=== PATIENT | male | born 1975 | race Asian ===

== ENCOUNTER 2016-08-31 21:22 | Emergency (ER) | payer MEDICAID, OTHER ==
[2016-08-31 21:27] VITALS: TEMP 97.5; O2SAT 96
--- NOTE | 2016-08-31 21:58 | EDPHY ---
H & P Stated Complaint: left lower back pain x3 days while moving. hx of back injury HPI/ROS: HPI CHIEF COMPLAINT: Low back pain HISTORY OF PRESENT ILLNESS: This patient very pleasant 40-year-old male, significant past medical history for lumbar fusion L4 L5-10 years ago, no other daily medical problems does not take any daily medications, presents emergency room with 2-3 days of worsening left paravertebral lumbar back pain. Describes the pain as sharp stabbing radiates down his left posterior leg to his foot. Sciatic type symptoms. He denies midline lumbar back pain, denies saddle anesthesia, denies bowel or bladder incontinence, denies leg weakness. Denies trouble walking. Denies fever, direct trauma to his back. Tells me this pain started 2-3 days ago it was moving boxes and "tweaked his back" currently upon arrival emergency room tells me his pain is 6/10 left-sided lumbar region paravertebral. Past Medical History: No significant medical history Past Surgical History: Lumbar fusion L4-L5 Social History: Denies daily use of drugs alcohol tobacco products, works at [employer] Family History: noncontributory ROS REVIEW OF SYSTEMS: A comprehensive 10 point review of systems is otherwise negative aside from elements mentioned in the history of present illness. Exam Constitutional appears well nontoxic, triage nursing summary reviewed, vital signs reviewed, awake/alert. Eyes normal conjunctivae and sclera, EOMI, PERRLA. HENT normal inspection, atraumatic, moist mucus membranes, no epistaxis, neck supple/ no meningismus, no raccoon eyes. Respiratory clear to auscultation bilaterally, normal breath sounds, no respiratory distress, no wheezing. Cardiovascular rate normal, regular rhythm, no murmur, no edema, distal pulses normal. Gastrointestinal soft, non-tender, no rebound, no guarding, normal bowel sounds, no distension, no pulsatile mass. Genitourinary no CVA tenderness. Musculoskeletal back exam: No midline lumbar back pain does have mild tenderness palpation paravertebral lumbar region, scar to left paravertebral region, full range of motion, no calf swelling, no tenderness of extremities, no meningismus, good pulses, neurovascularly intact. Skin pink, warm, & dry, no rash, skin atraumatic. a neurological exam no evidence of cauda equina syndrome specifically no bowel bladder incontinence, no leg weakness, normal reflexes, good straight leg test. With CLR he does have sharp shooting pain down left leg. +CLR Neurologic awake, alert and oriented x 3, AAOx3, moves all 4 extremities equally, motor intact, sensory intact, CN II-XII intact, normal cerebellar, normal vision, normal speech. Psychiatric normal mood/affect. Heme/Lymph/Immune no lymphadenopathy. Differential Diagnosis: Includes but is not limited to in a particular order nerve root compression, annular tear, degenerative disc disease, malalignment of lumbar spine, compression fracture, hardware malalignment, however fracture Medical Decision Making: Plan for this patient W[place] p. o., Flexeril p. o., ibuprofen p.o., lumbar spine x-ray. Re-evaluation: ED x-ray lumbar spine two-view: image interpreted by myself. However seen L4- L5 good placement. No malalignment. No compression fracture. No obvious signs of cause of patient's pain. 2226: Re-examination at this time. Patient resting comfortably no acute distress. Agrees for discharge planning. Agrees to follow up with Neurosurgery outpatient. Call for an appointment. Prescription given for ibuprofen, [place], Flexeril. No hard signs of acute cauda equina syndrome. Source: Patient - Personal History Current Tetanus/Diphtheria Vaccine: Unsure Current Tetanus Diphtheria and Acellular Pertussis (TDAP): Unsure - Medical/Surgical History Hx Asthma: No Hx Chronic Respiratory Disease: No Hx Diabetes: No Hx Cardiac Disease: No Hx Renal Disease: No Hx Cirrhosis: No Hx Alcoholism: No Hx HIV/AIDS: No Hx Splenectomy or Spleen Trauma: No Other PMH: back surgery spinal fusion 2004 - Social History Smoking Status: Never smoked Constitutional: Initial Vital Signs Temperature (C) 36.4 C 08/31/16 21:24 Heart Rate 100 08/31/16 21:24 Respiratory Rate 18 08/31/16 21:24 Blood Pressure 123/85 H 08/31/16 21:24 O2 Sat (%) 96 08/31/16 21:24 O2 Delivery Mode Room Air Allergies/Adverse Reactions: No Known Allergies Allergy (Verified 08/31/16 21:27) Home Medications: Medication Instructions Recorded Cyclobenzaprine [Flexeril 10 MG 10 mg PO TID PRN #5 tab 08/31/16 (*)] Hydrocodone/APAP 5/325 [[place] 1 - 2 tab PO Q4H PRN #10 tab 08/31/16 5/325] Ibuprofen [Motrin (*)] 800 mg PO Q6-8PRN #7 tab 08/31/16 Medical Decision Making - Data Points Medications Given: Discontinued Medications Hydrocodone Bitart/Acetaminophen ([place] 10/325) 1 tab PO EDNOW ONE Stop: 08/31/16 22:04 Last Admin: 08/31/16 22:21 Dose: 1 tab Cyclobenzaprine HCl (Flexeril) 10 mg PO EDNOW ONE Stop: 08/31/16 22:04 Last Admin: 08/31/16 22:20 Dose: 10 mg Ibuprofen (Motrin) 800 mg PO EDNOW ONE Stop: 08/31/16 22:04 Last Admin: 08/31/16 22:20 Dose: 800 mg Ondansetron HCl (Zofran Odt) 4 mg PO EDNOW ONE Stop: 08/31/16 22:04 Last Admin: 08/31/16 22:20 Dose: 4 mg Departure - Departure Disposition: Home, Routine, Self-Care Clinical Impression: Low back strain Qualifiers: Encounter type: initial encounter Qualified Code(s): S39.012A - Strain of muscle, fascia and tendon of lower back, initial encounter Condition: Good Instructions: Low Back Strain (ED) Additional Instructions: 1. Take ibuprofen for mild pain. 2. ice Your back. 3.Do not do aggressive activity 4. take W[place] if you have severe pain. 5. Please follow up with her primary care doctor or year ortho spine doctor about further evaluation of her back pain if it continues to bother you. You may at 1 point need an MRI of her back. 6. I have also referred you to neurosurgery. Please call their for an appointment. Referrals: NONE *PRIMARY CARE P,. [Primary Care Provider] - As per Instructions Michael Saab MD [Medical Doctor] - As per Instructions Prescriptions: Cyclobenzaprine [Flexeril 10 MG (*)] 10 mg PO TID PRN #5 tab PRN Reason: Spasms Hydrocodone/APAP 5/325 [[place]ak[place] 5/325] 1 - 2 tab PO Q4H PRN #10 tab PRN Reason: Pain, Moderate Ibuprofen [Motrin (*)] 800 mg PO Q6-8PRN #7 tab
[2016-08-31] MEDS ORDERED: IBUPROFEN 200 MG TAB PO ONE (22:03)
[2016-08-31] MEDS ORDERED: ONDANSETRON DISINTEGRATING 4 MG TAB PO ONE (22:03)
[2016-08-31] MEDS ORDERED: CYCLOBENZAPRINE 10 MG TAB PO ONE (22:03)
[2016-08-31] MEDS ORDERED: HYDROCODONE/APAP 10/325 TAB PO ONE (22:03)
[2016-08-31] MEDS ORDERED: HYDROCODONE/APAP 5/325 TAB ONE ×2 (22:12)
[2016-08-31 22:40] VITALS: BP 120/84; PULSE 82; RESP 16
== END 2016-08-31 22:39 | disposition home or self-care (01) ==
DX: S39.012A Strain of muscle, fascia and tendon of lower back, initial encounter (principal); X58.XXXA Exposure to other specified factors, initial encounter

== ENCOUNTER → 2016-11-11 | Outpatient (CLI) | payer MEDICAID | LOC: FIMAGING 18:50 | PROVIDERS: ATTEND Neurological Surgery | DX: Z98.1 Arthrodesis status (principal); M48.06 Spinal stenosis, lumbar region ==

== ENCOUNTER 2017-01-10 23:29 | Emergency (ER) | payer MEDICAID ==
[2017-01-10 23:34] VITALS: RESP 18
[2017-01-10] MEDS ORDERED: ACETAMINOPHEN 325 MG TAB PO ONE (23:45)
[2017-01-10] MEDS ORDERED: NS 1,000 ML IV ONE (23:45)
[2017-01-10] MEDS ORDERED: CYCLOBENZAPRINE 10 MG TAB PO ONE (23:45)
--- NOTE | 2017-01-10 23:48 | EDPHY ---
H & P Smoking Status: Never smoked Time Seen by Provider: 01/10/17 23:47 HPI/ROS: HPI: This is a 41 year old male who presents with Chief Complaint: Location: Fever Quality: Fever Duration: 3-4 days Signs and Symptoms: Positive sore throat, no nausea, no vomiting, no diarrhea, no abdominal pain, no cough, + fatigue, no neck stiffness, no headache, no urinary symptoms, positive chills Timing: sudden daily Severity: Moderate Context: Patient presents today with 3-4 day history of subjective fevers, chills and fatigue accompanied by sore throat. He reports that he lives with his brother who was diagnosed with strep throat last week. 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 Seen by primary care 2 days ago and tested negative for influenza. Modifying Factors: 600mg Motrin at 2130 Comment: ROS: Eyes: No blurred vision Respiratory: No shortness of breath, no cough Cardiovascular: No chest pain Gastrointestinal: No nausea, no vomiting no diarrhea Genitourinary: No dysuria Extremities: No myalgias Neurologic: No weakness, no numbness Skin: No rashes Hematologic: No bruising, no bleeding MEDICAL/SURGICAL HISTORY: Generally healthy. Lumbar fusion L4-L5. (Afshan Bragg) Social History: Employed. (Afshan Bragg) Physical Exam: CONSTITUTIONAL: ill appearing male, awake and alert, no obvious distress, non- toxic in appearance HEENT: Atraumatic and normocephalic, PERRL, EOMI. Tympanic membranes clear. Oropharynx clear, no exudate and moist pink mucosa. Airway patent. No lymphadenopathy. No meningismus. Cardiovascular: Normal S1/S2, regular rate, regular rhythm, without murmur rub or gallop. PULMONARY/CHEST: Symmetrical and nontender. Clear to auscultation bilaterally Good air movement. No accessory muscle usage. ABDOMEN: Soft, nondistended, nontender, no rebound, no guarding, no peritoneal signs, no masses or organomegaly. No CVAT. EXTREMITIES: 2/2 pulses, no deformities, no clubbing, no cyanosis or edema. NEUROLOGICAL: no focal neuro deficits. GCS 15. SKIN: Warm and dry, no erythema. no rash. Good capillary refill. (Afshan Bragg) Constitutional: Initial Vital Signs Temperature (C) 36.6 C 01/10/17 23:32 Heart Rate 82 01/10/17 23:32 Respiratory Rate 18 01/10/17 23:32 Blood Pressure 159/83 H 01/10/17 23:32 O2 Sat (%) 99 01/10/17 23:32 O2 Delivery Mode Room Air Allergies/Adverse Reactions: No Known Allergies Allergy (Verified 08/31/16 21:27) Home Medications: Medication Instructions Recorded Cyclobenzaprine [Flexeril 10 MG 10 mg PO TID PRN #5 tab 08/31/16 (*)] Hydrocodone/APAP 5/325 [Etlan 1 - 2 tab PO Q4H PRN #10 tab 08/31/16 5/325] Ibuprofen [Motrin (*)] 800 mg PO Q6-8PRN #7 tab 08/31/16 Medical Decision Making ED Course/Re-evaluation: Labs, urinalysis, IV fluids, medications, chest x-ray, strep test No systemic signs. Leukocytosis. Strep is negative CXR my read, no opacity/effusion/pneumothorax Creatinine 1.4 noted; 2 liters NS given and tolerating p.o. End of Shift: Signed out to Dr. Toney at 0100 pending UA results. suspect they will be normal and patient will be discharged home with supportive care. (Afshan Bragg) Differential Diagnosis: Adult fever including but not limited to viral syndromes including influenza, urinary tract infection, pneumonia and sepsis. (Afshan Bragg) Other Provider: PHYSICIAN DOCUMENTATION: The patient was evaluated and managed by the Physician Aut[employer] Specialist. My co- signature indicates that I have reviewed this chart and I agree with the findings and plan of care as documented. I am the secondary supervising physician. I followed up on the patient's UA which was normal and the patient will be discharged home. (Ayleen Toney) - Data Points Laboratory Results: Laboratory Results 01/11/17 00:05 01/11/17 00:05 01/11/17 01/11/17 01/11/17 Unknown 01:00 00:05 WBC RBC Hgb Hct MCV MCH MCHC RDW Plt Count MPV Neut % (Auto) Lymph % (Auto) [place] % (Auto) Eos % (Auto) Baso % (Auto) Nucleat RBC Rel Count Absolute Neuts (auto) Absolute Lymphs (auto) Absolute Monos (auto) Absolute Eos (auto) Absolute Basos (auto) Absolute Nucleated RBC Immature Gran % Immature Gran # ESR Sodium 141 mEq/L mEq/L (134-144) Potassium 3.7 mEq/L mEq/L (3.5-5.2) Chloride 107 mEq/L mEq/L (97-110) Carbon Dioxide 23 mEq/l mEq/l (22-31) Anion Gap 11 mEq/L mEq/L (8-16) BUN 12 mg/dL mg/dL (7-23) Creatinine 1.4 mg/dL H mg/dL (0.7-1.3) Estimated GFR 56 Glucose 73 mg/dL mg/dL (70-100) Calcium 9.4 mg/dL mg/dL (8.5-10.4) Total Bilirubin 0.5 mg/dL mg/dL (0.1-1.4) AST 26 IU/L IU/L (17-59) ALT 33 IU/L IU/L (21-72) Alkaline Phosphatase 58 IU/L IU/L (38-126) Total Protein 7.2 g/dL g/dL (6.3-8.2) Albumin 4.0 g/dL g/dL (3.5-5.0) Urine Color COLORLESS Urine Appearance CLEAR Urine pH 6.0 (5.0-7.5) Ur Specific [place] 1.002 (1.002-1.030) Urine Protein NEGATIVE (NEGATIVE) Urine Ketones NEGATIVE (NEGATIVE) Urine Blood NEGATIVE (NEGATIVE) Urine Nitrate NEGATIVE (NEGATIVE) Urine Bilirubin NEGATIVE (NEGATIVE) Urine Urobilinogen NEGATIVE EU EU (0.2-1.0) Ur Leukocyte Esterase NEGATIVE (NEGATIVE) Urine Glucose NEGATIVE (NEGATIVE) Group A Strep Screen Group A Strep DNA Pending 01/11/17 01/10/17 00:05 23:45 WBC 8.03 10^3/uL 10^3/uL (3.80-9.50) RBC 4.60 10^6/uL 10^6/uL (4.40-6.38) Hgb 13.8 g/dL g/dL (13.7-17.5) Hct 41.2 % % (40.0-51.0) MCV 89.6 fL fL (81.5-99.8) MCH 30.0 pg pg (27.9-34.1) MCHC 33.5 g/dL g/dL (32.4-36.7) RDW 12.1 % % (11.5-15.2) Plt Count 184 10^3/uL 10^3/uL (150-400) MPV 10.2 fL fL (8.7-11.7) Neut % (Auto) 56.6 % % (39.3-74.2) Lymph % (Auto) 32.9 % % (15.0-45.0) [place] % (Auto) 7.0 % % (4.5-13.0) Eos % (Auto) 2.6 % % (0.6-7.6) Baso % (Auto) 0.5 % % (0.3-1.7) Nucleat RBC Rel Count 0.0 % % (0.0-0.2) Absolute Neuts (auto) 4.55 10^3/uL 10^3/uL (1.70-6.50) Absolute Lymphs (auto) 2.64 10^3/uL 10^3/uL (1.00-3.00) Absolute Monos (auto) 0.56 10^3/uL 10^3/uL (0.30-0.80) Absolute Eos (auto) 0.21 10^3/uL 10^3/uL (0.03-0.40) Absolute Basos (auto) 0.04 10^3/uL 10^3/uL (0.02-0.10) Absolute Nucleated RBC 0.00 10^3/uL 10^3/uL (0-0.01) Immature Gran % 0.4 % % (0.0-1.1) Immature Gran # 0.03 10^3/uL 10^3/uL (0.00-0.10) ESR 8 MM/HR MM/HR (0-15) Sodium Potassium Chloride Carbon Dioxide Anion Gap BUN Creatinine Estimated GFR Glucose Calcium Total Bilirubin AST ALT Alkaline Phosphatase Total Protein Albumin Urine Color Urine Appearance Urine pH Ur Specific [place] Urine Protein Urine Ketones Urine Blood Urine Nitrate Urine Bilirubin Urine Urobilinogen Ur Leukocyte Esterase Urine Glucose Group A Strep Screen NEGATIVE (NEGATIVE) Group A Strep DNA Medications Given: Discontinued Medications Acetaminophen (Tylenol) 650 mg PO EDNOW ONE Stop: 01/10/17 23:46 Last Admin: 01/11/17 00:01 Dose: 650 mg Cyclobenzaprine HCl (Flexeril) 10 mg PO EDNOW ONE Stop: 01/10/17 23:46 Last Admin: 01/11/17 00:01 Dose: 10 mg Sodium Chloride (Ns) 1,000 mls @ 0 mls/hr IV EDNOW ONE; Wide Open PRN Reason: Protocol Stop: 01/10/17 23:46 Last Admin: 01/11/17 00:01 Dose: 1,000 mls Sodium Chloride (Ns) 1,000 mls @ 0 mls/hr IV EDNOW ONE; Wide Open PRN Reason: Protocol Stop: 01/11/17 00:51 Last Admin: 01/11/17 01:38 Dose: Not Given Departure - Departure Disposition: Home, Routine, Self-Care Clinical Impression: Viral syndrome Condition: Good Instructions: Viral Syndrome (ED) Additional Instructions: Take Tylenol 650 mg p.o. and/or ibuprofen 600-800 mg p.o. as needed for fever, pain. Push fluids; drink a minimum of 8 glasses of water daily. Referrals: Tommy Souza MD [Primary Care Provider] - 3-4 days, if not improved
[2017-01-11 00:23] LABS: SEDIMENTATION RATE 8 MM/HR (0-15)
[2017-01-11 00:34] LABS: % IMMATURE GRANULYOCYTES 0.4 % (0.0-1.1); ABSOLUTE IMMATURE GRANULOCYTES 0.03 10^3/uL (0.00-0.10); ADD DIFF? NO; ADD MORPH? NO; ADD SCAN? NO; ATYPICAL LYMPHOCYTE FLAG 20 (0-99); FRAGMENT RBC FLAG 0 (0-99); HEMATOCRIT 41.2 % (40.0-51.0); HEMOGLOBIN 13.8 g/dL (13.7-17.5); LEFT SHIFT FLG 0 (0-99); LIPEMIA HEMOLYSIS FLAG 80 (0-99); MEAN CELL HEMOGLOBIN CONCENTR. 33.5 g/dL (32.4-36.7); MEAN CELL VOLUME 89.6 fL (81.5-99.8); MEAN PLATELET VOLUME 10.2 fL (8.7-11.7); PLATELET CLUMPS FLAG 0 (0-99); PLATELET COUNT 184 10^3/uL (150-400); RED CELL DISTRIBUTION WIDTH 12.1 % (11.5-15.2)
[2017-01-11 00:44] LABS: ALANINE AMINOTRANSFERASE 33 IU/L (21-72); ALKALINE PHOSPHATASE 58 IU/L (38-126); ANION GAP 11 mEq/L (8-16); ASPARTATE AMINOTRANSFERASE 26 IU/L (17-59); BILIRUBIN,TOTAL 0.5 mg/dL (0.1-1.4); CALCIUM 9.4 mg/dL (8.5-10.4); CARBON DIOXIDE 23 mEq/l (22-31); CHLORIDE 107 mEq/L (97-110); CREATININE 1.4 mg/dL (0.7-1.3); GLOMERULAR FILTRATION RATE 56; GLUCOSE 73 mg/dL (70-100); POTASSIUM 3.7 mEq/L (3.5-5.2); SODIUM 141 mEq/L (134-144); TOTAL PROTEIN 7.2 g/dL (6.3-8.2)
[2017-01-11] MEDS ORDERED: NS 1,000 ML IV ONE (00:50)
[2017-01-11 01:17] LABS: COLOR COLORLESS; LEUKOCYTE ESTERASE,URINE NEGATIVE (NEGATIVE); NITRITE,URINE NEGATIVE (NEGATIVE)
[2017-01-11 01:41] VITALS: BP 119/72; PULSE 78; TEMP 97.5; O2SAT 96
== END 2017-01-11 01:43 | disposition home or self-care (01) ==
DX: B34.9 Viral infection, unspecified (principal); E86.9 Volume depletion, unspecified

== ENCOUNTER 2017-01-17 13:22 | Day surgery (SDC) | payer MEDICAID ==
[2017-01-17] MEDS ORDERED: FLUMAZENIL 0.5 MG/5 ML MDV IVP ONE (13:50)
[2017-01-17] MEDS ORDERED: fentaNYL 100 MCG/2 ML INJ ONE (13:51)
[2017-01-17] MEDS ORDERED: MIDAZOLAM 2 MG/2 ML VIAL ONE (13:51)
[2017-01-17] MEDS ORDERED: NALOXONE HCL 0.4 MG/ML INJ ONE (13:51)
[2017-01-17] MEDS ORDERED: TRIAMCINOLONE ACETONIDE 200 MG/5 ML MDV IM ONE (14:47)
[2017-01-17] MEDS ORDERED: IOPAMIDOL (ISOVUE-M 300) 15 ML VIAL ONE (14:47)
[2017-01-17 16:11] VITALS: BP 120/77; O2SAT 96
== END 2017-01-17 16:09 | disposition home or self-care (01) ==
LOC: FIMAGING 13:22
PROVIDERS: ATTEND Physician Assistant
DX: M54.9 Dorsalgia, unspecified (principal); M79.605 Pain in left leg; Z98.1 Arthrodesis status
CPT/HCPCS: J2250; J2310; J3010; J3301; Q9967

== ENCOUNTER 2017-02-06 18:39 | Emergency (ER) | payer MEDICAID ==
--- NOTE | 2017-02-06 19:18 | EDPHY ---
H & P Stated Complaint: Back pain worse since injection 2 wks ago;out of Putnam Time Seen by Provider: 02/06/17 18:59 HPI/ROS: CHIEF COMPLAINT: Low back and leg pain HISTORY OF PRESENT ILLNESS: This patient is a 41 year old male complaining of burning, aching pain in his lower back and leg, worsening since a lumbar spine injection 2.5 weeks ago. He arrives at the request of his primary care provider. He has an L4-L5 fusion 12 years ago. 3 months ago, he tweaked his back and developed lumbar back pain and nerve pain radiating down his left leg to his toe. He had an MRI showing compressed nerves and decided to proceed with spinal injection. He has had prior injections, but this time felt burning stabbing pain in his leg immediately that he has never felt before. His pain has progressively gotten worse since onset. He has tried gabapentin, Putnam, and Prednisone with no relief. No weakness, numbness, vomiting, urinary complaints, difficulty controlling his bowels, headache, or other associated symptoms. REVIEW OF SYSTEMS: A 10 point review of systems was performed and is negative with the exception of the elements mentioned in the history of present illness. - Personal History Current Tetanus Diphtheria and Acellular Pertussis (TDAP): Yes - Medical/Surgical History PMH: L4-5 fusion with chronic weakness of left lower extremity (2004). Hx Asthma: No Hx Chronic Respiratory Disease: No Hx Diabetes: No Hx Cardiac Disease: No Hx Renal Disease: No Hx Cirrhosis: No Hx Alcoholism: No Hx HIV/AIDS: No Hx Splenectomy or Spleen Trauma: No Other PMH: back surgery spinal fusion 2004. chronic back pain - Social History Smoking Status: Never smoked Additional Social History: Nonsmoker. Lives in [place]. Single. - Physical Exam Exam: General Appearance: Alert, no distress Eyes: Pupils equal and round, no conjunctival pallor or injection ENT, Mouth: Mucous membranes moist Neck: Normal inspection Back: Surgical scars, no tenderness. Respiratory: Lungs are clear to auscultation Cardiovascular: Regular rate and rhythm Gastrointestinal: Abdomen is soft and non- tender Neurological: A&O, nonfocal, normal gait. Weakness with dorsiflexion of ankle and great toe on left. Skin: Warm and dry, no rash Extremities: Positive SLR on left. Nontender, no pedal edema Psychiatric: Mood and affect normal Constitutional: Initial Vital Signs Temperature (C) 36.9 C 02/06/17 18:52 Heart Rate 100 02/06/17 18:52 Respiratory Rate 20 02/06/17 18:52 Blood Pressure 130/93 H 02/06/17 18:52 O2 Sat (%) 99 02/06/17 18:52 O2 Delivery Mode Room Air Allergies/Adverse Reactions: No Known Allergies Allergy (Verified 02/06/17 18:50) Home Medications: Medication Instructions Recorded Hydrocodone/APAP 5/325 [[place] 1 - 2 tab PO Q4H PRN #10 tab 02/06/17 5/325] Medical Decision Making - Diagnostics Imaging Results: Lumbar Spine MRI 02/06/17 19:18 Impression: 1. Status post posterior spinal and interbody fusion at L4-L5. 2. Advanced degenerative disk disease at L3-L4 with accompanying advanced bilateral facet hypertrophy; these features result in severe central canal stenosis, severe bilateral lateral recess narrowing, and moderate bilateral neural foraminal stenosis (left greater than right), with equivocally more left lateral disk bulging seen peripherally than on the study of 11/11/2016. There is no epidural hematoma observed. Findings were discussed with MEE URBINA MD at 21:59, on 02/06/2017. Imaging: Discussed imaging studies w/ call center supervisor Radiologist ED Course/Re-evaluation: 41 year old male presets with 2.5 weeks of worsening back and leg pain following a spinal injection 2.[address] Rosario Mansfield, radiologist. Exam reveals weakness with dorsiflexion of ankle and great toe on left which is chronic according to the patient. No back tenderness, surgical scars present. Plan for MRI of lumbar spine to evaluate for epidural hematoma/abscess, given recent procedure. Plan to administer PO Putnam 5/325 for pain relief. Plan for labs including CBC, BMP. Creatinine elevated at 1.6. I discussed this with the patient and recommended he follow up with his primary care physician for evaluation of this. 22:[address] Bland, radiologist. MRI lumbar spine shows advanced degenerative disk disease at L3-L4. Severe central canal stenosis, severe bilateral lateral recess narrowing, and moderate bilateral neural foraminal stenosis (left greater than right), with equivocally more left lateral disk bulging than on prior study 11/11/2016. No epidural hematoma. 22:20 Reassessed patient. Discussed MRI results. Plan to discharge home in good condition with prescription for Putnam for pain management. Declines Medrol Dosepak. Follow up and return precautions discussed. The patient is comfortable with this plan. Differential Diagnosis: Differential diagnosis for back pain includes muscular pain, herniated disc, epidural abscess, discitis, spine fracture, intra-abdominal causes and urinary tract infection. - Data Points Laboratory Results: Laboratory Results 02/06/17 19:20 02/06/17 19:20 Medications Given: Discontinued Medications Hydrocodone Bitart/Acetaminophen (Put[place] 5/325) 2 tab PO EDNOW ONE Stop: 02/06/17 19:26 Last Admin: 02/06/17 19:31 Dose: 2 tab Hydrocodone Bitart/Acetaminophen (Put[place] 5/325mg Prepack#6) 1 btl TAKEHOME EDNOW ONE Stop: 02/06/17 22:47 Last Admin: 02/06/17 22:46 Dose: 1 btl Departure - Departure Disposition: Home, Routine, Self-Care Clinical Impression: Low back pain, Lumbar back pain with radiculopathy affecting left lower extremity Condition: Good Instructions: Hydrocodone/Acetaminophen (By mouth), Lumbar Radiculopathy (ED), Back Pain (ED) Additional Instructions: 1. Your creatinine is elevated today at 1.6 Follow up with your primary care physician for continued evaluation of this. 2. Follow up with [facility] for continued evaluation. 3. Take your Putnam 1 tablet every 4-6 hours as needed for severe pain. You may also take 600mg Ibuprofen every 6-8 hours with food. Do not take Tylenol while you are taking Putnam as this medication already contains acetaminophen. 4.. Return to the emergency department for severe pain, fever, numbness, difficulty walking, change in location or nature of pain or other concerns. Referrals: Tommy Souza MD [Primary Care Provider] - As per Instructions Thor Awad MD [Medical Doctor] - As per Instructions Prescriptions: Hydrocodone/APAP 5/325 [Putnam 5/325] 1 - 2 tab PO Q4H PRN #10 tab PRN Reason: Pain, Moderate Report Scribed for: Mee Urbina Report Scribed by: Scarlett Snowden Date of Report: 02/06/17 Time of Report: 19:19 Physician Review and Approval Statement: 02/06/17 19:19 Portions of this note were transcribed by a nurses medical assistants phlebotomists. I personally performed a history, physical exam, medical decision making, and confirmed accuracy of information the transcribed note.
[2017-02-06] MEDS ORDERED: HYDROCODONE/APAP 5/325 TAB PO ONE (19:25)
[2017-02-06 19:28] LABS: % IMMATURE GRANULYOCYTES 0.4 % (0.0-1.1); ABSOLUTE IMMATURE GRANULOCYTES 0.03 10^3/uL (0.00-0.10); ADD DIFF? NO; ADD MORPH? NO; ADD SCAN? NO; ATYPICAL LYMPHOCYTE FLAG 10 (0-99); FRAGMENT RBC FLAG 0 (0-99); HEMATOCRIT 45.4 % (40.0-51.0); HEMOGLOBIN 15.4 g/dL (13.7-17.5); LEFT SHIFT FLG 0 (0-99); LIPEMIA HEMOLYSIS FLAG 90 (0-99); MEAN CELL HEMOGLOBIN CONCENTR. 33.9 g/dL (32.4-36.7); MEAN CELL VOLUME 91.3 fL (81.5-99.8); MEAN PLATELET VOLUME 9.8 fL (8.7-11.7); PLATELET CLUMPS FLAG 0 (0-99); PLATELET COUNT 225 10^3/uL (150-400); RED BLOOD CELL COUNT 4.97 10^6/uL (4.40-6.38); RED CELL DISTRIBUTION WIDTH 12.4 % (11.5-15.2)
[2017-02-06 19:45] LABS: ANION GAP 13 mEq/L (8-16); CALCIUM 9.4 mg/dL (8.5-10.4); CARBON DIOXIDE 24 mEq/l (22-31); CHLORIDE 102 mEq/L (97-110); CREATININE 1.6 mg/dL (0.7-1.3); GLOMERULAR FILTRATION RATE 48; GLUCOSE 94 mg/dL (70-100); POTASSIUM 3.7 mEq/L (3.5-5.2); SODIUM 139 mEq/L (134-144)
[2017-02-06 22:10] VITALS: RESP 16
[2017-02-06] MEDS ORDERED: HYDROCOD/APAP 5/325 PREPACK#6 BTL TAKEHOME ONE ×2 (22:42→22:46)
[2017-02-06 22:49] VITALS: BP 132/65; PULSE 78; TEMP 98.1; O2SAT 97
== END 2017-02-06 22:50 | disposition home or self-care (01) ==
DX: M54.16 Radiculopathy, lumbar region (principal)

== ENCOUNTER 2017-02-09 04:59 | Emergency (ER) | payer MEDICAID ==
--- NOTE | 2017-02-09 05:16 | EDPHY ---
H & P Stated Complaint: back pain and left leg pain HPI/ROS: HPI CHIEF COMPLAINT: Back pain, left leg pain HISTORY OF PRESENT ILLNESS: This patient is a 41-year-old male otherwise healthy, suffers from back pain. Recently over the past 3 months he has had worsening back pain. He has sharp stabbing pain that radiates down his left leg. Patient recently was in the emergency room and had an MRI this shows significant disc disease at L3-L4 with facet arthropathy central canal stenosis. Disc herniation worse on the left. He complains of pain in this distribution. Pain that shoots down his left gluteus across his left anterior thigh across his left knee and down to his foot. Worse with movement. He denies saddle anesthesia. He denies bowel bladder incontinence or retention. Denies fever. Denies new trauma. States his pain is not controlled. Came to the emergency room at 5 o'clock in the morning and states that he needs pain medicine. Of note I did review his MRI. And recent ER visit. Past Medical History: Denies any significant medical history Past Surgical History: Previous lumbar fusion Social History: Denies daily use drugs alcohol tobacco products. Lives locally. Family History: Noncontributory ROS REVIEW OF SYSTEMS: A comprehensive 10 point review of systems is otherwise negative aside from elements mentioned in the history of present illness. Exam Constitutional appears nontoxic, triage nursing summary reviewed, vital signs reviewed, awake/alert. Eyes normal conjunctivae and sclera, EOMI, PERRLA. HENT normal inspection, atraumatic, moist mucus membranes, no epistaxis, neck supple/ no meningismus, no raccoon eyes. Respiratory clear to auscultation bilaterally, normal breath sounds, no respiratory distress, no wheezing. Cardiovascular rate normal, regular rhythm, no murmur, no edema, distal pulses normal. Gastrointestinal soft, non-tender, no rebound, no guarding, normal bowel sounds, no distension, no pulsatile mass. Genitourinary no CVA tenderness. Musculoskeletal no midline vertebral tenderness, full range of motion, no calf swelling, no tenderness of extremities, no meningismus, good pulses, neurovascularly intact. Skin pink, warm, & dry, no rash, skin atraumatic. Neurologic awake, alert and oriented x 3, AAOx3, moves all 4 extremities equally, motor intact, sensory intact, CN II-XII intact, normal cerebellar, normal vision, normal speech. No focal leg weakness. No saddle anesthesia. Pain worsens with straight leg raise of the left leg. Left leg is neurovascular intact good pulse. Good sensation. Warm extremity. Psychiatric normal mood/affect. Heme/Lymph/Immune no lymphadenopathy. Differential Diagnosis: Includes but is not limited to in a particular order, sciatica, disc herniation, annular tear, nerve root compression, arthritis, no signs of acute cauda equina syndrome. Medical Decision Making: Plan for this patient IV establishment with IV pain control 100 mcg IV fentanyl for pain, IV Zofran for nausea, Toradol for pain control, Decadron. Re-evaluate. Re-evaluation: 0610AM: This patient was medicated with IV Decadron, IV Toradol, IV fentanyl this feeling much better. Current pain 06/28. He would like to go home. I will prescribe him narcotic pain medicine. And Decadron. Anti-inflammatory pain medicine. He understands to follow up with his primary care doctor as well as Neurosurgery. He is agreeable this plan. Source: Patient - Personal History Current Tetanus/Diphtheria Vaccine: Yes Current Tetanus Diphtheria and Acellular Pertussis (TDAP): Yes - Medical/Surgical History Hx Asthma: No Hx Chronic Respiratory Disease: No Hx Diabetes: No Hx Cardiac Disease: No Hx Renal Disease: No Hx Cirrhosis: No Hx Alcoholism: No Hx HIV/AIDS: No Hx Splenectomy or Spleen Trauma: No Other PMH: back surgery spinal fusion 2004. chronic back pain - Social History Smoking Status: Never smoked Constitutional: Initial Vital Signs Temperature (C) 36.7 C 02/09/17 05:05 Heart Rate 90 02/09/17 05:05 Respiratory Rate 18 02/09/17 05:05 Blood Pressure 160/92 H 02/09/17 05:05 O2 Sat (%) 99 02/09/17 05:05 O2 Delivery Mode Room Air Allergies/Adverse Reactions: No Known Allergies Allergy (Verified 02/09/17 05:08) Home Medications: Medication Instructions Recorded Dexamethasone [Decadron 4 MG (*)] 4 mg PO DAILY #4 tab 02/09/17 Hydrocodone/APAP 5/325 [[place] 1 - 2 tab PO Q4H PRN #20 tab 02/09/17 5/325] Ibuprofen [Motrin (*)] 800 mg PO Q6-8PRN #10 tab 02/09/17 Medical Decision Making - Data Points Medications Given: Discontinued Medications Dexamethasone (Decadron Injection) 10 mg IVP EDNOW ONE Stop: 02/09/17 05:23 Last Admin: 02/09/17 05:33 Dose: 10 mg Fentanyl (Sublimaze) 100 mcg IVP EDNOW ONE Stop: 02/09/17 05:23 Last Admin: 02/09/17 05:34 Dose: 100 mcg Sodium Chloride (Ns) 1,000 mls @ 0 mls/hr IV ONCE ONE PRN Reason: Wide Open Stop: 02/09/17 05:23 Last Admin: 02/09/17 05:31 Dose: 1,000 mls Ketorolac Tromethamine (Toradol) 30 mg IVP EDNOW ONE Stop: 02/09/17 05:23 Last Admin: 02/09/17 05:32 Dose: 30 mg Ondansetron HCl (Zofran) 4 mg IVP EDNOW ONE Stop: 02/09/17 05:23 Last Admin: 02/09/17 05:32 Dose: 4 mg Departure - Departure Disposition: Home, Routine, Self-Care Clinical Impression: Back pain Qualifiers: Back pain location: low back pain Chronicity: acute Back pain laterality: left Sciatica presence: with sciatica Sciatica laterality: sciatica of left side Qualified Code(s): M54.42 - Lumbago with sciatica, left side Condition: Good Instructions: Low Back Strain (ED), Acute Low Back Pain (ED), Lumbar Radiculopathy (ED) Referrals: Tommy Souza MD [Primary Care Provider] - As per Instructions Aide Castillo DO [Doctor of Osteopathy] - As per Instructions Prescriptions: Dexamethasone [Decadron 4 MG (*)] 4 mg PO DAILY #4 tab Hydrocodone/APAP 5/325 [[place] 5/325] 1 - 2 tab PO Q4H PRN #20 tab PRN Reason: Pain, Moderate Ibuprofen [Motrin (*)] 800 mg PO Q6-8PRN #10 tab
[2017-02-09] MEDS ORDERED: fentaNYL 100 MCG/2 ML INJ IVP ONE (05:22)
[2017-02-09] MEDS ORDERED: ONDANSETRON 4 MG/2 ML VIAL IVP ONE (05:22)
[2017-02-09] MEDS ORDERED: DEXAMETHASONE 10 MG/ML VIAL IVP ONE (05:22)
[2017-02-09] MEDS ORDERED: NS 1,000 ML IV ONE (05:22)
[2017-02-09] MEDS ORDERED: KETOROLAC 30 MG/1 ML SDV IVP ONE (05:22)
[2017-02-09 06:42] VITALS: BP 132/87; PULSE 79; RESP 16; TEMP 97.9; O2SAT 94
== END 2017-02-09 06:41 | disposition home or self-care (01) ==
DX: M54.42 Lumbago with sciatica, left side (principal)
CPT/HCPCS: 96374; J1100; J1885; J2405; J3010

== ENCOUNTER 2017-03-07 18:46 | Emergency (ER) | payer MEDICAID ==
[2017-03-07 18:53] VITALS: TEMP 97.7
--- NOTE | 2017-03-07 19:41 | EDPHY ---
H & P Stated Complaint: 3 months low back and left leg pain - getting worse and has N/ V Time Seen by Provider: 03/07/17 19:40 - Personal History Current Tetanus Diphtheria and Acellular Pertussis (TDAP): Yes - Medical/Surgical History Hx Asthma: No Hx Chronic Respiratory Disease: No Hx Diabetes: No Hx Cardiac Disease: No Hx Renal Disease: No Hx Cirrhosis: No Hx Alcoholism: No Hx HIV/AIDS: No Hx Splenectomy or Spleen Trauma: No Other PMH: back surgery spinal fusion 2004. chronic back pain - Social History Smoking Status: Never smoked Constitutional: Initial Vital Signs Temperature (C) 36.5 C 03/07/17 18:49 Heart Rate 118 H 03/07/17 18:49 Respiratory Rate 18 03/07/17 18:49 Blood Pressure 122/99 H 03/07/17 18:49 O2 Sat (%) 98 03/07/17 18:49 O2 Delivery Mode Room Air Allergies/Adverse Reactions: No Known Allergies Allergy (Verified 02/09/17 05:08) Home Medications: Medication Instructions Recorded Ibuprofen [Motrin (*)] 800 mg PO Q6-8PRN #10 tab 02/09/17 [place] 03/07/17 Medical Decision Making - Diagnostics Imaging: Discussed imaging studies w/ crew caller Radiologist, I viewed and interpreted images myself ED Course/Re-evaluation: CHIEF COMPLAINT: Malaise, vomiting HISTORY OF PRESENT ILLNESS: The patient is a 41 y/o male with a history of chronic back pain who presents with malaise and vomiting for the last 4 days. His symptoms are aggravated by eating and drinking. He has associated diffuse abdominal cramping and initially had some diarrhea that has since resolved. He denies fever, cough, sore throat, recent illness, or recent trauma. He is otherwise healthy. REVIEW OF SYSTEMS: A 10 point review of systems was performed and is negative with the exception of the elements mentioned in the history of present illness. PHYSICAL EXAM: HR, BP, O2 Sat, RR. Temp noted General Appearance: Alert, well hydrated, appropriate, and non-toxic appearing. Head: Atraumatic without scalp tenderness or obvious injury Eyes: Pupils equal, round, reactive to light and accommodation, EOMI, no trauma , no injection. Nose: Atraumatic, no rhinorrhea, clear. Throat: Mucus membranes moist. Neck: Supple Respiratory: No retractions, no distress, no wheezes, and no accessory muscle use. Lungs are clear to auscultation bilaterally. Cardiovascular: Regular rate and rhythm, no murmurs, rubs, or gallops. Good capillary refill all extremities. Gastrointestinal: Abdomen is soft, nontender, non-distended, no masses, no rebound, no guarding, no peritoneal signs. Musculoskeletal: Normal active ROM of all extremities, atraumatic. Neurological: Alert, appropriate, and interactive. The patient has non-focal cranial nerves, motor, sensory, and cerebellar exam. Skin: No rashes, good turgor, no nodules on palpation. Past medical history: Chronic back pain Past surgical history: fusions Family history: noncontributory Social history: Followed by Nikos Alvarez. Single. Lives in [place]. Employed. DIAGNOSTICS/PROCEDURES/CRITICAL CARE TIME: Abdominal CT: negative DIFFERENTIAL DIAGNOSIS: The differential diagnosis for the patient's nausea and vomiting included but was not limited to gastroenteritis, gastritis, appendicitis, and medication side effect. MEDICAL DECISION MAKING: This is a 41 y/o male with a history of chronic back pain who presents with a 4 day history of vomiting and malaise that is exacerbated by eating and drinking. His abdomen is benign. Plan for IV, labs, UA, abdominal CT, and symptom management. 4mg IV Zofran, 30mg IV Toradol, 1mg IV Dilaudid administered. Labs are unremarkable. Abdominal CT negative. Reassessed patient and discussed work up. We have not found an obvious cause for his symptoms here. I've recommended following up with his PCP for unimproved symptoms. Return precautions given. - Data Points Laboratory Results: Laboratory Results 03/07/17 20:00 03/07/17 20:00 03/07/17 03/07/17 03/07/17 20:00 20:00 19:40 WBC 5.05 10^3/uL 10^3/uL (3.80-9.50) RBC 4.94 10^6/uL 10^6/uL (4.40-6.38) Hgb 15.5 g/dL g/dL (13.7-17.5) Hct 44.1 % % (40.0-51.0) MCV 89.3 fL fL (81.5-99.8) MCH 31.4 pg pg (27.9-34.1) MCHC 35.1 g/dL g/dL (32.4-36.7) RDW 11.9 % % (11.5-15.2) Plt Count 200 10^3/uL 10^3/uL (150-400) MPV 9.1 fL fL (8.7-11.7) Neut % (Auto) 62.2 % % (39.3-74.2) Lymph % (Auto) 25.9 % % (15.0-45.0) [place] % (Auto) 10.5 % % (4.5-13.0) Eos % (Auto) 0.6 % % (0.6-7.6) Baso % (Auto) 0.6 % % (0.3-1.7) Nucleat RBC Rel Count 0.0 % % (0.0-0.2) Absolute Neuts (auto) 3.14 10^3/uL 10^3/uL (1.70-6.50) Absolute Lymphs (auto) 1.31 10^3/uL 10^3/uL (1.00-3.00) Absolute Monos (auto) 0.53 10^3/uL 10^3/uL (0.30-0.80) Absolute Eos (auto) 0.03 10^3/uL 10^3/uL (0.03-0.40) Absolute Basos (auto) 0.03 10^3/uL 10^3/uL (0.02-0.10) Absolute Nucleated RBC 0.00 10^3/uL 10^3/uL (0-0.01) Immature Gran % 0.2 % % (0.0-1.1) Immature Gran # 0.01 10^3/uL 10^3/uL (0.00-0.10) Sodium 137 mEq/L mEq/L (134-144) Potassium 3.8 mEq/L mEq/L (3.5-5.2) Chloride 102 mEq/L mEq/L (97-110) Carbon Dioxide 23 mEq/l mEq/l (22-31) Anion Gap 12 mEq/L mEq/L (8-16) BUN 7 mg/dL mg/dL (7-23) Creatinine 1.1 mg/dL mg/dL (0.7-1.3) Estimated GFR > 60 Glucose 106 mg/dL H mg/dL (70-100) Calcium 8.9 mg/dL mg/dL (8.5-10.4) Total Bilirubin 0.5 mg/dL mg/dL (0.1-1.4) Conjugated Bilirubin 0.3 mg/dL mg/dL (0.0-0.5) Unconjugated Bilirubin 0.2 mg/dL mg/dL (0.0-1.1) AST 21 IU/L IU/L (17-59) ALT 29 IU/L IU/L (21-72) Alkaline Phosphatase 61 IU/L IU/L (38-126) Total Protein 6.8 g/dL g/dL (6.3-8.2) Albumin 3.7 g/dL g/dL (3.5-5.0) Lipase 47 IU/L IU/L (23-300) Urine Color PALE YELLOW Urine Appearance CLEAR Urine pH 6.0 (5.0-7.5) Ur Specific [place] 1.004 (1.002-1.030) Urine Protein NEGATIVE (NEGATIVE) Urine Ketones NEGATIVE (NEGATIVE) Urine Blood NEGATIVE (NEGATIVE) Urine Nitrate NEGATIVE (NEGATIVE) Urine Bilirubin NEGATIVE (NEGATIVE) Urine Urobilinogen NEGATIVE EU EU (0.2-1.0) Ur Leukocyte Esterase NEGATIVE (NEGATIVE) Urine Glucose NEGATIVE (NEGATIVE) Medications Given: Discontinued Medications Hydromorphone HCl (Dilaudid) 1 mg IVP EDNOW ONE Stop: 03/07/17 19:50 Last Admin: 03/07/17 20:10 Dose: 1 mg Sodium Chloride (Ns) 1,000 mls @ 0 mls/hr IV ONCE ONE; Wide Open PRN Reason: Protocol Stop: 03/07/17 20:09 Last Admin: 03/07/17 20:10 Dose: 1,000 mls Ketorolac Tromethamine (Toradol) 30 mg IVP EDNOW ONE Stop: 03/07/17 19:50 Last Admin: 03/07/17 20:10 Dose: 30 mg Ondansetron HCl (Zofran) 4 mg IVP EDNOW ONE Stop: 03/07/17 19:50 Last Admin: 03/07/17 20:10 Dose: 4 mg Departure - Departure Disposition: Home, Routine, Self-Care Clinical Impression: Nausea and vomiting Qualifiers: Vomiting type: unspecified Vomiting Intractability: non-intractable Qualified Code(s): R11.2 - Nausea with vomiting, unspecified Abdominal pain Qualifiers: Abdominal location: generalized Qualified Code(s): R10.84 - Generalized abdominal pain Condition: Good Instructions: Ondansetron (By mouth), Acute Nausea and Vomiting (ED) Additional Instructions: 1. Take Zofran as prescribed as needed for nausea and vomiting. 2. Follow up with your primary care provider for unimproved symptoms over the weekend. 3. Return to the ED for worsening of condition. Referrals: Tommy Souza MD [Primary Care Provider] - As per Instructions Report Scribed for: Onel Jordan Report Scribed by: Mary Mendoza Date of Report: 03/07/17 Time of Report: 19:45
[2017-03-07] MEDS ORDERED: HYDROmorphONE/DILAUDID 1 MG/ML INJ IVP ONE (19:49)
[2017-03-07] MEDS ORDERED: ONDANSETRON 4 MG/2 ML VIAL IVP ONE (19:49)
[2017-03-07] MEDS ORDERED: KETOROLAC 30 MG/1 ML SDV IVP ONE (19:49)
[2017-03-07 20:00] LABS: COLOR PALE YELLOW; LEUKOCYTE ESTERASE,URINE NEGATIVE (NEGATIVE); NITRITE,URINE NEGATIVE (NEGATIVE)
[2017-03-07] MEDS ORDERED: NS 1,000 ML IV ONE (20:08)
[2017-03-07 20:19] LABS: % IMMATURE GRANULYOCYTES 0.2 % (0.0-1.1); ABSOLUTE IMMATURE GRANULOCYTES 0.01 10^3/uL (0.00-0.10); ADD DIFF? NO; ADD MORPH? NO; ADD SCAN? NO; ATYPICAL LYMPHOCYTE FLAG 20 (0-99); FRAGMENT RBC FLAG 0 (0-99); HEMATOCRIT 44.1 % (40.0-51.0); HEMOGLOBIN 15.5 g/dL (13.7-17.5); LEFT SHIFT FLG 0 (0-99); LIPEMIA HEMOLYSIS FLAG 90 (0-99); MEAN CELL HEMOGLOBIN 31.4 pg (27.9-34.1); MEAN CELL HEMOGLOBIN CONCENTR. 35.1 g/dL (32.4-36.7); MEAN CELL VOLUME 89.3 fL (81.5-99.8); MEAN PLATELET VOLUME 9.1 fL (8.7-11.7); PLATELET CLUMPS FLAG 0 (0-99); PLATELET COUNT 200 10^3/uL (150-400); RED BLOOD CELL COUNT 4.94 10^6/uL (4.40-6.38); RED CELL DISTRIBUTION WIDTH 11.9 % (11.5-15.2)
[2017-03-07 20:53] LABS: ALANINE AMINOTRANSFERASE 29 IU/L (21-72); ALBUMIN 3.7 g/dL (3.5-5.0); ALKALINE PHOSPHATASE 61 IU/L (38-126); ANION GAP 12 mEq/L (8-16); ASPARTATE AMINOTRANSFERASE 21 IU/L (17-59); BILIRUBIN,TOTAL 0.5 mg/dL (0.1-1.4); BILIRUBIN-CONJUGATED 0.3 mg/dL (0.0-0.5); BILIRUBIN-UNCONJUGATED 0.2 mg/dL (0.0-1.1); CALCIUM 8.9 mg/dL (8.5-10.4); CARBON DIOXIDE 23 mEq/l (22-31); CHLORIDE 102 mEq/L (97-110); CREATININE 1.1 mg/dL (0.7-1.3); GLOMERULAR FILTRATION RATE > 60; GLUCOSE 106 mg/dL (70-100); POTASSIUM 3.8 mEq/L (3.5-5.2); SODIUM 137 mEq/L (134-144); TOTAL PROTEIN 6.8 g/dL (6.3-8.2)
[2017-03-07] MEDS ORDERED: ONDANSETRON 4MG PREPACK#2 BTL TAKEHOME ONE (20:55)
[2017-03-07] MEDS ORDERED: IOPAMIDOL (ISOVUE-300) 100 ML BTL ONE (21:01)
[2017-03-07 21:42] VITALS: BP 141/90; PULSE 105; RESP 20; O2SAT 98
== END 2017-03-07 21:42 | disposition home or self-care (01) ==
DX: R10.84 Generalized abdominal pain (principal); R11.2 Nausea with vomiting, unspecified; E86.9 Volume depletion, unspecified
CPT/HCPCS: 96374; J1170; J1885; J2405; Q9967

== ENCOUNTER 2017-09-20 11:33 | Emergency (ER) | payer SELFPAY ==
[2017-09-20] MEDS ORDERED: LIDOCAINE 4%/MENTHOL 1% PATCH TD ONE (12:31)
[2017-09-20] MEDS ORDERED: HYDROCODONE/APAP 5/325 TAB PO ONE (12:31)
--- NOTE | 2017-09-20 13:01 | EDPHY ---
H & P Stated Complaint: low back/L leg pain Time Seen by Provider: 09/20/17 11:57 HPI/ROS: Chief Complaint: Back and leg pain HPI: 41-year-old male with a history of chronic back pain is presenting with 4 days of worsening left lower back pain consistent with prior pain. Patient has had a fusion in the past. No new numbness or weakness. Patient states that he tweaked his back when he was lifting several days ago. No fevers or chills. Denies any IV drug use. Has been ambulating without significant difficulty. He has been taking ibuprofen at home and resting without any relief. ROS: 10 point Review of Systems is negative except as noted in the HPI. PMH: Chronic back pain Social History: No smoking, no alcohol, no recreational drug use Family History: non-contributory Physical Exam: Gen: Awake, Alert, No Distress HEENT: Nose: no rhinorrhea Eyes: PERRLA, EOMI Mouth: Moist mucosa Neck: Supple, no JVD Back: no CVA tenderness, no midline tenderness, prior surgical scars noted. Patient has reproducible left lower back pain in the lumbar region. Ext: no edema, non-tender Skin: no rash Neuro: CN II-XII intact, Sensation grossly intact, Strength 5/5 in bilateral upper and lower extremities, 2+ patellar reflexes, toes are downgoing. Sensations intact in all dermatomes. - Personal History Current Tetanus/Diphtheria Vaccine: Yes Current Tetanus Diphtheria and Acellular Pertussis (TDAP): Yes - Medical/Surgical History Hx Asthma: No Hx Chronic Respiratory Disease: No Hx Diabetes: No Hx Cardiac Disease: No Hx Renal Disease: No Hx Cirrhosis: No Hx Alcoholism: No Hx HIV/AIDS: No Hx Splenectomy or Spleen Trauma: No Other PMH: back surgery spinal fusion 2004. chronic back pain - Social History Smoking Status: Never smoked Constitutional: Initial Vital Signs Temperature (C) 36.7 C 09/20/17 11:47 Heart Rate 71 09/20/17 11:47 Respiratory Rate 16 09/20/17 11:47 Blood Pressure 121/76 H 09/20/17 11:47 O2 Sat (%) 97 09/20/17 11:47 O2 Delivery Mode Room Air Allergies/Adverse Reactions: No Known Allergies Allergy (Verified 09/20/17 11:46) Home Medications: Medication Instructions Recorded Ibuprofen [Motrin (*)] 800 mg PO Q6-8PRN #10 tab 02/09/17 Hydrocodone/Acetaminophen 1 - 2 each PO Q4-6PRN PRN #10 09/20/17 [Hydrocodon-Acetaminophen 5-325] tablet Medical Decision Making ED Course/Re-evaluation: 41-year-old male presenting with low back pain consistent with musculoskeletal pain exacerbation. He has no red flags for acute cauda equina syndrome or epidural abscess. He is completely neurologically intact. He is afebrile. Will give him analgesia here and discharged with follow-up as an outpatient. - Data Points Medications Given: Miscellaneous Information (Patch Removal) 1 ea TD DAILY21 EMRE Stop: 03/19/18 20:59 Last Admin: 09/20/17 13:04 Dose: Not Given Discontinued Medications Hydrocodone Bitart/Acetaminophen ([place] 5/325) 2 tab PO EDNOW ONE Stop: 09/20/17 12:32 Last Admin: 09/20/17 13:02 Dose: 2 tab Miscellaneous Medication (Icy Hot Lidocaine/Menthol 4%/1% Patch) 1 patch TD EDNOW ONE Stop: 09/20/17 12:32 Last Admin: 09/20/17 13:02 Dose: 1 patch Departure - Departure Disposition: Home, Routine, Self-Care Clinical Impression: Back pain Condition: Good Instructions: Back Pain (ED), Lower Back Exercises (ED) Additional Instructions: Take ibuprofen, 600 mg, 3 times a day. You may take hydrocodone with acetaminophen for breakthrough pain. You may replace the Lidoderm patch every 24 hr. Make sure to remain active. Did do not lay in bed or sit in a chair for long periods. It is important to remain active and keep your back moving in order to improve. Please see the attached back exercise instructions. Follow up with her back doctor in 2-3 days for further evaluation. Referrals: Tommy Souza MD [Primary Care Provider] - As per Instructions Prescriptions: Hydrocodone/Acetaminophen [Hydrocodon-Acetaminophen 5-325] 1 - 2 each PO Q4- 6PRN PRN #10 tablet PRN Reason: Pain, Severe
[2017-09-20 13:35] VITALS: BP 111/61
[2017-09-20] MEDS ORDERED: PATCH REMOVAL 1 EA PATCH TD SCH (21:00)
== END 2017-09-20 13:35 | disposition home or self-care (01) ==
DX: M54.5 Low back pain (principal)